=== PATIENT | female | born 1955 | race Caucasian/White ===

== ENCOUNTER 2017-02-11 20:37 | Observation (INO) | payer OTHER ==
[~2017-02-11] VITALS: Ht 160 cm; Wt 75.0 kg
[~2017-02-11 20:37] MED LIST: ASPI81CH CHEW; ATOR40TA16 PO; GABA800T PO; LEVO50TA4 PO; MAPA500T13 PO; MECL-62 PO; METO200T3 PO
[2017-02-11 20:52] VITALS: BP 150/67; PULSE 74; RESP 18; TEMP 98.7; O2SAT 99
[2017-02-11] MEDS ORDERED: NITROGLYCERIN 0.4 MG SL 25 TABS/BTL SL ONE (21:00)
[2017-02-11] MEDS ORDERED: SODIUM CHLORIDE 0.9% FLUSH 10 ML FLUSH IVF PRN (21:00)
[2017-02-11 21:09] VITALS: BP 112/73; PULSE 74; RESP 18; O2SAT 99
--- NOTE | 2017-02-11 21:10 | PD ---
HPI Chief Complaint: Chest Pain Time Seen by Provider: 21:06 Travel History International Travel<30 days: No Contact w/Intl Traveler<30days: No Traveled to known affect area: No History of Present Illness HPI 61-year-old female that presents to the ED for evaluation of chest pain. Patient states that she's had the chest pain for about a couple hours. Per patient she does have a history of heart disease in 2004 and received stents for this. She has no local cytology manager that she is originally from [place]. Per patient she just made an appointment with a local doctor and has only had one visit with his doctor. Patient has a history of high cholesterol and hypertension. Per patient the chest pain comes and shortness of breath and feels like a pressure as well as a palpitation. Per patient he does not radiate. States mainly on the left side. Patient also has some epigastric abdominal pain with some nausea. Per patient she also has a slight headache. She also states that she feels dizzy. Per patient the pain in the chest is 9 out of 10. She denies taking any blood thinners. She states that she has not vomited. She did took 4 small aspirin before coming to the ED. She has no allergies to medication. She is Czech speaker only and was offered snuff box finisher but she declined stating that she feels comfortable with my Czech as well as with her translating for her. [facility] Past Medical History Cardiovascular Problems: Yes (cardiac stents 2004) High Cholesterol: Yes Hypertension: Yes Thyroid Disease: Yes Past Surgical History Cardiac Surgery: Yes (stents) Coronary Stent: Yes Social History Alcohol Use: No Tobacco Use: Yes Substance Use: No Allergies-Medications (Allergen,Severity, Reaction): Coded Allergies: No Known Allergies (Unverified , 01/03/17) Reported Meds & Prescriptions Reported Meds & Active Scripts Active Reported Mapap Extra Strength (Acetaminophen) 500 Mg Tab 500 Mg PO Q4-6H PRN Aspirin 81 Mg Chew 81 Mg CHEW DAILY Atorvastatin (Atorvastatin Calcium) 40 Mg Tab 40 Mg PO HS Levothyroxine (Levothyroxine Sodium) 50 Mcg Tab 50 Mcg PO DAILY Gabapentin 800 Mg Tab 800 Mg PO TID Meclizine (Meclizine HCl) 25 Mg Tab 25 Mg PO DIRECTED PRN Metoprolol Succinate ER 24 HR (Metoprolol Succinate) 200 Mg Tab 200 Mg PO DAILY Review of Systems Except as stated in HPI: all other systems reviewed are Neg Physical Exam Narrative GENERAL: SKIN: Warm and dry. HEAD: Atraumatic. Normocephalic. EYES: Pupils equal and round. No scleral icterus. No injection or drainage. ENT: No nasal bleeding or discharge. Mucous membranes pink and moist. Tongue is midline. No uvula deviation. NECK: Trachea midline. No JVD. CARDIOVASCULAR: Regular rate and rhythm. No murmurs, S3, S4. RESPIRATORY: No accessory muscle use. Clear to auscultation. Breath sounds equal bilaterally. GASTROINTESTINAL: Abdomen soft, tender to palpation epigastric area, nondistended. Hepatic and splenic margins not palpable. MUSCULOSKELETAL: Extremities without clubbing, cyanosis, or edema. No obvious deformities. Full range of motion of the upper and lower extremities bilaterally. 2+ pulses bilaterally. NEUROLOGICAL: Awake and alert. No obvious cranial nerve deficits. Motor grossly within normal limits. Five out of 5 muscle strength in the arms and legs. Normal speech. PSYCHIATRIC: Appropriate mood and affect; insight and judgment normal. Data Data Last Documented VS Vital Signs Date Time Temp Pulse Resp B/P Pulse Ox O2 Delivery O2 Flow Rate FiO2 02/11/17 21:09 74 18 112/73 99 Room Air 02/11/17 20:52 98.7 Orders Electrocardiogram (02/11/17 20:48) Ckmb (Isoenzyme) Profile (02/11/17 20:48) Complete Blood Count With Diff (02/11/17 20:48) Comprehensive Metabolic Panel (02/11/17 20:48) Magnesium (Mg) (02/11/17 20:48) Prothrombin Time / Inr (Pt) (02/11/17 20:48) Act Partial Throm Time (Ptt) (02/11/17 20:48) Troponin I (02/11/17 20:48) Lipase (02/11/17 20:48) Chest, Single Ap (02/11/17 20:48) Ecg Monitoring (02/11/17 20:48) Bilateral Bp Monitoring (02/11/17 20:48) Iv Access Insert/Monitor (02/11/17 20:48) Oximetry (02/11/17 20:48) Oxygen Administration (02/11/17 20:48) Sodium Chloride 0.9% Flush (Ns Flush) (02/11/17 21:00) Nitroglycerin Sl (Nitrostat Sl) (02/11/17 21:00) Morphine Inj (Morphine Inj) (02/11/17 21:45) CKMB (02/11/17 21:00) CKMB% (02/11/17 21:00) Famotidine Inj (Pepcid Inj) (02/11/17 22:30) Admit Order (Ed Use Only) (02/11/17:31) Activity Bed Rest With Brp (02/11/17:) Vital Signs (Adult) Q4H (02/11/17) Cardiac Rhythm .As Directed (02/11/17:) Notify Dr: Other .PRN (02/11/17) Notify DrSonu Parameters (02/11/17) Resp Oxygen Nasal Cannula (02/11/17 ) Ckmb (Isoenzyme) Profile (02/12/17 00:00) Ckmb (Isoenzyme) Profile (02/12/17 03:00) Troponin I (02/12/17 00:00) Troponin I (02/12/17 03:00) Electrocardiogram (02/12/17 00:00) Electrocardiogram (02/12/17 03:00) ^ Obtain (02/11/17:31) Sodium Chloride 0.9% Flush (Ns Flush) (02/11/17 22:45) Sodium Chloride 0.9% Flush (Ns Flush) (02/12/17 09:00) Acetaminophen (Tylenol) (02/11/17 22:45) Acetamin-Hydrocod 325-7.5 Mg (Roark 7.5 (02/11/17 22:45) Famotidine (Pepcid) (02/12/17 09:00) Nitroglycerin 2% Oint (Nitroglycerin 2% (02/12/17 00:00) Water Quality Assistant / Telemetry SETH.Q8H (02/11/17:) Labs Laboratory Tests Test 02/11/17 21:00 White Blood Count 8.0 TH/MM3 Red Blood Count 4.41 MIL/MM3 Hemoglobin 13.1 GM/DL Hematocrit 40.4 % Mean Corpuscular Volume 91.6 FL Mean Corpuscular Hemoglobin 29.8 PG Mean Corpuscular Hemoglobin 32.5 % Concent Red Cell Distribution Width 14.7 % Platelet Count 256 TH/MM3 Mean Platelet Volume 9.0 FL Neutrophils (%) (Auto) 55.1 % Lymphocytes (%) (Auto) 33.1 % Monocytes (%) (Auto) 7.7 % Eosinophils (%) (Auto) 3.5 % Basophils (%) (Auto) 0.6 % Neutrophils # (Auto) 4.4 TH/MM3 Lymphocytes # (Auto) 2.6 TH/MM3 Monocytes # (Auto) 0.6 TH/MM3 Eosinophils # (Auto) 0.3 TH/MM3 Basophils # (Auto) 0.0 TH/MM3 CBC Comment DIFF FINAL Differential Comment Prothrombin Time 10.9 SEC Prothromb Time International 1.0 RATIO Ratio Activated Partial 30.0 SEC Thromboplast Time Sodium Level 139 MEQ/L Potassium Level 4.2 MEQ/L Chloride Level 106 MEQ/L Carbon Dioxide Level 29.7 MEQ/L Anion Gap 3 MEQ/L Blood Urea Nitrogen 13 MG/DL Creatinine 0.82 MG/DL Estimat Glomerular Filtration 70 ML/MIN Rate Random Glucose 89 MG/DL Calcium Level 9.5 MG/DL Magnesium Level 2.1 MG/DL Total Bilirubin 0.5 MG/DL Aspartate Amino Transf 37 U/L (AST/SGOT) Alanine Aminotransferase 29 U/L (ALT/SGPT) Alkaline Phosphatase 71 U/L Total Creatine Kinase 152 U/L Troponin I LESS THAN 0.02 NG/ML Total Protein 8.1 GM/DL Albumin 4.0 GM/DL Lipase 353 U/L MDM Medical Decision Making Medical Screen Exam Complete: Yes Emergency Medical Condition: Yes Medical Record Reviewed: Yes Interpretation(s) CBC & BMP Diagram 02/11/17 21:00 LFTs and lipase within normal limits. EKG shows sinus rhythm with no sign of acute ischemia or arrhythmia. Read by me and attending. Last Impressions Chest X-Ray 02/11/172047 Signed Impressions: Service Date/Time: Saturday, February 11, 2017 21:04 - CONCLUSION: No acute disease. Lamberto Feliciano MD Troponin and CK-MB negative. Differential Diagnosis Chest pain versus a typical chest pain versus ACS versus pneumothorax versus pneumonia versus CVA versus N-STEMI Narrative Course 61-year-old female that presents to the ED for evaluation of chest pain. Patient was properly examined and was found to have signs and symptoms concerning for ACS. Labs and imaging were ordered. Initial EKG shows sinus rhythm with no sign of acute ischemia read by me and attending. Labs and imaging were ordered. Patient was given nitroglycerin here. Labs and imaging showed no sign of acute disease. Patient was reassured. At this time case was discussed with my attending Dr. Jackson who is in agreement with admission to the chest pain center for further workup secondary to her comorbidities including previous ACS on herself. She also has a history of high blood pressure and high cholesterol. She got some relief with the nitroglycerin. She was given morphine for her pain as well. She was given Pepcid as she was complaining of some heartburn as well. Patient and family agree with plan to admission. Patient was admitted to the chest pain center. Orders were placed by me. Diagnosis Primary Impression: Chest pain in adult Admitting Information Admitting Physician Requests: Michael Madera Feb 11, 2017 21:10
[2017-02-11 21:35] LABS: AUTOMATED NEUTROPHIL # 4.4 TH/MM3 (1.8-7.7); BASOPHIL % 0.6 % (0.0-2.0); EOSINOPHIL # 0.3 TH/MM3 (0-0.4); EOSINOPHIL % 3.5 % (0.0-4.0); HEMATOCRIT 40.4 % (35.0-46.0); HEMO FLAGS DIFF FINAL; LYMPH % 33.1 % (9.0-44.0); LYMPHOCYTE # 2.6 TH/MM3 (1.0-4.8); MEAN CELL VOLUME 91.6 FL (80.0-100.0); MEAN CORPUSCULAR HEMOGLOBIN 29.8 PG (27.0-34.0); MEAN CORPUSCULAR HGB CONC 32.5 % (32.0-36.0); MONO % 7.7 % (0.0-8.0); NEUT % 55.1 % (16.0-70.0); PLATELET COUNT 256 TH/MM3 (150-450); RED BLOOD COUNT 4.41 MIL/MM3 (4.00-5.30); RED CELL DISTRIBUTION WIDTH 14.7 % (11.6-17.2)
--- NOTE | 2017-02-11 21:40 | RADRPT ---
EXAM DATE/TIME: 02/11/2017 21:04 [facility] COMPARISON: No previous studies available for comparison. INDICATIONS : Chest pain. MEDICAL HISTORY : Hypertension. Hypercholesterolemia. Smoker. SURGICAL HISTORY : Coronary stent. ENCOUNTER: Initial ACUITY: 1 day PAIN SCORE: 5/10 LOCATION: Bilateral chest FINDINGS: A single view of the chest demonstrates the lungs to be symmetrically aerated without evidence of mas s, infiltrate or effusion. The cardiomediastinal contours are unremarkable. Osseous structures are intact. CONCLUSION: No acute disease. Lamberto Feliciano MD on February 11, 2017 at 21:39 Board Certified Radiologist. This report was verified electronically.
[2017-02-11] MEDS ORDERED: MORPHINE SULFATE 8 MG/ML INJ IV PUSH ONE (21:45)
[2017-02-11 21:47] LABS: PROTHROMBIN TIME - PATIENT 10.9 SEC (9.8-11.6)
[2017-02-11 22:12] LABS: ALT (GPT) 29 U/L (10-53)
[2017-02-11 22:26] LABS: ALKALINE PHOSPHATASE 71 U/L (45-117); ANION GAP 3 MEQ/L (5-15); AST (GOT) 37 U/L (15-37); BICARBONATE 29.7 MEQ/L (21.0-32.0); BLOOD UREA NITROGEN 13 MG/DL (7-18); CHLORIDE 106 MEQ/L (98-107); CREATINE KINASE 152 U/L (26-192); GLOMERULAR FILTRATION RATE 70 ML/MIN (>89); MAGNESIUM 2.1 MG/DL (1.5-2.5); POTASSIUM 4.2 MEQ/L (3.5-5.1); SODIUM (NA) 139 MEQ/L (136-145); TOTAL BILIRUBIN ADULT 0.5 MG/DL (0.2-1.0)
[2017-02-11] MEDS ORDERED: FAMOTIDINE 20 MG/2 ML VIAL IV PUSH ONE (22:30)
[2017-02-11 22:39] LABS: CKMB 0.7 NG/ML (0.5-3.6)
[2017-02-11 22:43] VITALS: O2SAT 99
[2017-02-11] MEDS ORDERED: SODIUM CHLORIDE 0.9% FLUSH 10 ML FLUSH IV FLUSH PRN (22:45)
[2017-02-11] MEDS ORDERED: ACETAMINOPHEN/HYDROcodone 325 MG/7.5 MG TAB PO PRN (22:45)
[2017-02-11] MEDS ORDERED: ACETAMINOPHEN 500 MG CPLT PO PRN (22:45)
[2017-02-11 22:51] VITALS: BP 126/58; PULSE 67; RESP 18; O2SAT 98
[2017-02-11] MEDS ORDERED: ACETAMINOPHEN 325 MG TAB PO ONE (23:00)
[2017-02-11 23:35] VITALS: BP 127/62; PULSE 63; RESP 19; TEMP 97.4; O2SAT 99
[2017-02-12] MEDS: NITROGLYCERIN 2% OINT 1 GM PACKET TOP SCH ×2 (00:47→06:00)
[2017-02-12 00:49] LABS: CREATINE KINASE 120 U/L (26-192)
[2017-02-12 04:14] VITALS: BP 97/55; PULSE 63; RESP 18; TEMP 97.5; O2SAT 99
[2017-02-12 04:15] LABS: CREATINE KINASE 92 U/L (26-192)
[2017-02-12 04:52] VITALS: PULSE 60
[2017-02-12 07:42] VITALS: BP 104/56; PULSE 60; RESP 20; TEMP 97; O2SAT 98
[2017-02-12] MEDS ORDERED: MECLIZINE HCL 25 MG TAB PO PRN (07:45)
[2017-02-12 08:00] VITALS: PULSE 68
--- NOTE | 2017-02-12 08:00 | HHI.HP ---
HPI Primary Care Physician Unknown Chief Complaint Chest pain History of Present Illness This is a 61-year-old Cambodian-speaking female with history of CAD with 2 stents in 2004 that presents to ED with her via private vehicle to evaluate a chest discomfort. Patient prefers her via enterprise records analyst. Computer translation was offered but she has to climb. She describes a central chest pressure and epigastric discomfort that began around 2:00 yesterday while sitting at home. It lasted for several hours resolving in the ED after getting IV morphine. Symptoms lasted at least 8 hours. She is mildly short of breath. She was nauseous. No diaphoresis. Found nothing to worsen or improve her symptoms when she had them. She decided to lie down which did not help or worsen the symptoms. Eventually she told her of her symptoms and he brought her to the ED. These are not similar to the symptoms that she had when she had stents in 2004. Her main issue at that time was extreme shortness of breath and fatigue. They brought records and apparently she had a abnormal nuclear ETT and was was having a heart catheterization 12/22/16. states she coded. Upon reviewing records, patient went into PEA with intermittent V. fib requiring intubation and IABP. Patient was found to have total occlusion of ostial LAD, LCXP 90%, ORALIA 90%. Then drug-eluting stents 2 in the LAD and 1 to the mid circumflex were then placed. A repeat cardiac catheterization was performed 4 days later revealing patent stents. This smaller section proximal to the initial stent of the left circumflex and a second stent was then placed. Patient has moved to [place]. She does not have a drug abuse worker in the area. Last evaluation by drug abuse worker was about a year ago in [place]. Last stress test was 3 years ago. She has not had any cardiac catheterizations since 2004. Review of Systems General: Patient denies fevers, chills recent, and recent travel. Patient is Cambodian only speaking. Her is translating at the request of the patient. HEENT: Patient denies headache, sore throat, difficulty swallowing. Cardiovascular: Has the chest discomfort as mentioned above. [place] as if her heart was beating rapidly. No syncope. Denies diaphoresis. Respiratory: She had mild shortness of breath. Denies inspirational chest discomfort. Denies coughing wheezing or hemoptysis. GI: She had some nausea. Had epigastric abdominal pain during the episode chest discomfort. Patient denies vomiting, diarrhea, or bloody stools. Musculoskeletal: Patient denies joint pain or edema. Denies calf pain or edema. Neurovascular: Patient denies numbness, tingling, weakness in extremities. Denies headache. Endocrine: Denies polyuria and polydipsia. Hematologic: Denies easy bruising. Skin: Denies rash or itching. Past Family Social History Allergies: Coded Allergies: No Known Allergies (Unverified , 01/03/17) Past Medical History CAD with stents 2 in 2004. History of PEA with intermittent V. fib during cardiac catheterization in 2004. Hypertension, hyperlipidemia, hypothyroidism, and smoking. Denies diabetes. Past Surgical History Cardiac catheterization with stenting. Appendectomy and cholecystectomy. Reported Medications Reported Meds & Active Scripts Active Reported Mapap Extra Strength (Acetaminophen) 500 Mg Tab 500 Mg PO Q4-6H PRN Aspirin 81 Mg Chew 81 Mg CHEW DAILY Atorvastatin (Atorvastatin Calcium) 40 Mg Tab 40 Mg PO HS Levothyroxine (Levothyroxine Sodium) 50 Mcg Tab 50 Mcg PO DAILY Gabapentin 800 Mg Tab 800 Mg PO TID Meclizine (Meclizine HCl) 25 Mg Tab 25 Mg PO DIRECTED PRN Metoprolol Succinate ER 24 HR (Metoprolol Succinate) 200 Mg Tab 200 Mg PO DAILY Active Ordered Medications Current Medications Medications (Trade) Dose Ordered Sig/Ronal Route Start Time Stop Time Status Last Admin (NS Flush) 2 ml UNSCH PRN IVF 02/11/17 21:00 (NS Flush) 2 ml UNSCH PRN IV FLUSH 02/11/17 22:45 (NS Flush) 2 ml BID IV FLUSH 02/12/17 09:00 (Tylenol) 500 mg Q4H PRN PO 02/11/17 22:45 (Mclean 7.5-325 Mg) 1 tab Q4H PRN PO 02/11/17 22:45 (Pepcid) 20 mg BID PO 02/12/17 09:00 (Nitroglycerin 2% Oint) 1 inch Q6HR TOP 02/12/17 00:00 02/12/17 00:47 Family History Both parents had heart disease. Social History She continues to smoke. She has been smoking about one quarter pack to one half pack a day for more than 30 years. She had quit for a few years at most. Denies alcohol or illicit drugs. She has been for the last 6 months. Physical Exam Vital Signs Vital Signs Date Time Temp Pulse Resp B/P Pulse Ox O2 Delivery O2 Flow Rate FiO2 02/12/17 04:52 60 02/12/17 04:14 97.5 63 18 97/55 99 02/11/17 23:35 63 02/11/17 23:35 97.4 63 19 127/62 99 02/11/17 22:51 67 18 126/58 98 Room Air 02/11/17 22:43 99 02/11/17 21:09 74 18 112/73 99 Room Air 02/11/17 20:52 98.7 74 18 150/67 99 Room Air Physical Exam GENERAL: This is a well-nourished, well-developed patient, in no apparent distress. Patient speaks in clear complete sentences. Patient is pleasant. HEENT: Head is atraumatic and normocephalic. Neck is supple without lymphadenopathy and trachea is midline. No JVD or carotid bruits. CARDIOVASCULAR: Regular rate and rhythm without murmurs, gallops, or rubs. RESPIRATORY: Clear to auscultation. Breath sounds equal bilaterally. No wheezes , rales, or rhonchi. Chest wall is nontender. No use of accessory muscles. GASTROINTESTINAL: Abdomen is nontender, nondistended. Abdomen soft. No obvious pulsatile mass or bruit. No CVA tenderness. Strong femoral pulses bilaterally. Normal bowel sounds in all quadrants. MUSCULOSKELETAL: Patient is moving upper and lower extremities freely. No calf tenderness or edema, no Homans sign. Strong pulses in upper and lower extremities. NEUROLOGICAL: Patient is alert and oriented. Cranial nerves 2-12 are grossly intact. No focal deficits and speech is clear. SKIN: No rash and turgor is normal. Laboratory Laboratory Tests Test 02/11/17 02/12/17 02/12/17 21:00 00:02 03:19 White Blood Count 8.0 Red Blood Count 4.41 Hemoglobin 13.1 Hematocrit 40.4 Mean Corpuscular Volume 91.6 Mean Corpuscular Hemoglobin 29.8 Mean Corpuscular Hemoglobin 32.5 Concent Red Cell Distribution Width 14.7 Platelet Count 256 Mean Platelet Volume 9.0 Neutrophils (%) (Auto) 55.1 Lymphocytes (%) (Auto) 33.1 Monocytes (%) (Auto) 7.7 Eosinophils (%) (Auto) 3.5 Basophils (%) (Auto) 0.6 Neutrophils # (Auto) 4.4 Lymphocytes # (Auto) 2.6 Monocytes # (Auto) 0.6 Eosinophils # (Auto) 0.3 Basophils # (Auto) 0.0 CBC Comment DIFF FINAL Differential Comment Prothrombin Time 10.9 Prothromb Time International 1.0 Ratio Activated Partial 30.0 Thromboplast Time Sodium Level 139 Potassium Level 4.2 Chloride Level 106 Carbon Dioxide Level 29.7 Anion Gap 3 Blood Urea Nitrogen 13 Creatinine 0.82 Estimat Glomerular Filtration 70 Rate Random Glucose 89 Calcium Level 9.5 Magnesium Level 2.1 Total Bilirubin 0.5 Aspartate Amino Transf 37 (AST/SGOT) Alanine Aminotransferase 29 (ALT/SGPT) Alkaline Phosphatase 71 Total Creatine Kinase 152 120 92 Creatine Kinase MB 0.7 1.0 Troponin I LESS THAN 0.02 LESS THAN 0.02 LESS THAN 0.02 Total Protein 8.1 Albumin 4.0 Lipase 353 Result Diagram: 02/11/17 2100 02/11/172099 Imaging Last 24 hours Impressions Chest X-Ray 02/11/172047 Signed Impressions: Service Date/Time: Saturday, February 11, 2017 21:04 - CONCLUSION: No acute disease. Lamberto Feliciano MD Course EKGs have sinus rhythm with nonspecific T-wave changes. Assessment and Plan Assessment and Plan * Chest pain: Patient has had serial cardiac enzymes and EKGs for ruling out purposes. She will be seen by Dr. Camp of cardiology in the chest pain center and will undergo a Lexiscan. She'll be discharged home if the stress test was nonischemic with instructions to follow-up with local primary care physician as well as a local drug abuse worker. * CAD: This will be reassessed for stress testing. She will need to quit smoking. She will need to continue her medications. She will need to follow local drug abuse worker on an outpatient basis. * Hypertension: Continue current medication. * Hyperlipidemia: Continue current medication. * Hypothyroidism: Continue current medication. * Tobacco abuse: Patient has been counseled on importance of smoking cessation. Patient is stable at this time. She is agreeable to this plan. Duane Uribe Feb 12, 2017 08:00
[2017-02-12] MEDS ORDERED: FAMOTIDINE 20 MG TAB PO SCH (09:00)
[2017-02-12] MEDS ORDERED: LEVOTHYROXINE SODIUM 50 MCG TAB PO SCH (09:00)
[2017-02-12] MEDS ORDERED: GABAPENTIN 400 MG CAP PO SCH (09:00)
[2017-02-12] MEDS ORDERED: ASPIRIN 325 MG TAB PO SCH (09:00)
[2017-02-12] MEDS ORDERED: METOPROLOL SUCCINATE 50 MG EXTENDED RELEASE TAB PO SCH (09:00)
[2017-02-12] MEDS ORDERED: SODIUM CHLORIDE 0.9% FLUSH 10 ML FLUSH IV FLUSH SCH (09:00)
[2017-02-12] MEDS ORDERED: PANTOPRAZOLE SOD 40 MG DELAYED RELEASE TAB PO SCH (09:00)
[2017-02-12] MEDS ORDERED: REGADENOSON INJ 0.4 MG/5 ML SYR ONE (09:21)
--- NOTE | 2017-02-12 10:33 | RADRPT ---
EXAM DATE/TIME: 02/12/2017 08:35 [facility] COMPARISON: No previous studies available for comparison. INDICATIONS : Susbsternal chest pain with nausea. Angina. DOSE: 27.1 mCi Tc99m Myoview at stress. 8.5 mCi Tc99m Myoview at rest. 0.4 mg Lexiscan STRESS SYMPTOMS: Dyspnea and stomach pain EJECTION FRACTION: 66% MEDICAL HISTORY : Hypertension. SURGICAL HISTORY : Coronary artery stent. Appendectomy. Cholecystectomy. ENCOUNTER: Initial ACUITY: 1 day PAIN SCALE: 5/10 LOCATION: Substernal chest TECHNIQUE: The patient underwent pharmacologic stress with infusion of prescribed dose. Continuous ECG tracing was monitored during stress. Gated SPECT imaging was performed after stress and conventional SPECT i maging was performed at rest. The examination was performed on a SPECT/CT scanner, both attenuation and non-corrected datasets were reviewed. FINDINGS: DISTRIBUTION: The maximum perfused segment at stress is in the inferior wall. PERFUSION STUDY: The pattern of perfusion at stress is within normal limits. GATED STUDY: There is intact wall motion and thickening without hypokinetic or dyskinetic segments. CONCLUSION: 1. No significant reversible perfusion abnormality. 2. No focal wall motion abnormality with EF of 66%. RISK CATEGORY: Low (<1% Annual Mortality Rate) Albert Garcia MD on February 12, 2017 at 10:30 Board Certified Radiologist. This report was verified electronically.
[2017-02-12] MEDS ORDERED: PANT40TA3 PO (10:50)
--- NOTE | 2017-02-12 10:51 | HHI.DCPOC ---
Discharge Care Plan Diagnosis: (1) Chest pain (2) CAD (coronary artery disease) (3) H/O heart artery stent (4) Hypertension (5) Hyperlipidemia (6) Tobacco abuse Goals to Promote Your Health * To prevent worsening of your condition and complications * To maintain your health at the optimal level Directions to Meet Your Goals Take your medications as prescribed Follow your dietary instruction Follow activity as directed Keep your appointments as scheduled Take your immunizations and boosters as scheduled If your symptoms worsen call your PCP, if no PCP go to Urgent Care Center or Emergency Room Smoking is Dangerous to Your Health. Avoid second hand smoke Call the 24-hour hour crisis hotline for domestic abuse at Duane Uribe Feb 12, 2017 10:51
--- NOTE | 2017-02-12 16:58 | TR ---
Date Performed: 02/12/2017 Time Performed: 09:21:04 DOCTOR: Connie Camp DRUG LIST: CLINICAL HISTORY: REASON FOR TEST: Angina REASON FOR ENDING: OBSERVATION: CONCLUSION: Lexiscan stress test was performed under standard four minute protocol. Radionuclid e was injected one minute prior to ending the test. No electrocardiographic abormalities were present to suggest ischemia. Nuclear imaging and interpretation are pending. COMMENTS:
--- NOTE | 2017-02-12 16:59 | EKG ---
Date Performed: 02/12/2017 Time Performed: 03:55:43 PTAGE: 61 years EKG: Sinus rhythm NONSPECIFIC T-WAVE ABNORMALITY BORDERLINE ECG Since PREVIOUS TRACING , no significant change noted PREVIOUS TRACIN02/12/2017 01.43 DOCTOR: Connie Camp Interpretating Date/Time 02/12/2017 16:58:13
--- NOTE | 2017-02-12 16:59 | EKG ---
Date Performed: 02/11/2017 Time Performed: 20:49:28 PTAGE: 61 years EKG: Sinus rhythm NORMAL ECG NO PREVIOUS TRACING DOCTOR: Connie Camp Interpretating Date/Time 02/12/2017 16:58:38
--- NOTE | 2017-02-12 16:59 | EKG ---
Date Performed: 02/12/2017 Time Performed: 01:43:41 PTAGE: 61 years EKG: Sinus rhythm WITH FIRST DEGREE AV BLOCK NONSPECIFIC T-WAVE ABNORMALITY ABNORMAL ECG Since PREVIOUS TRACING , no significant change noted PREVIOUS TRACIN02/11/2017 20.49 DOCTOR: Connie Camp Interpretating Date/Time 02/12/2017 16:58:32
[2017-02-12] MEDS ORDERED: ATORVASTATIN 40 MG TAB PO SCH (21:00)
== END 2017-02-12 11:41 | disposition home or self-care (01) ==
LOC: NEPC 20:37 → NEDA 22:35 → NEPFCDU 23:24
PROVIDERS: ADMIT Internal Medicine Interventional Cardiology; ATTEND Internal Medicine Interventional Cardiology
DX: R07.9 Chest pain, unspecified (principal); I25.10 Atherosclerotic heart disease of native coronary artery without angina pectoris; Z98.61 Coronary angioplasty status; I10 Essential (primary) hypertension; E03.9 Hypothyroidism, unspecified; E78.5 Hyperlipidemia, unspecified; F17.200 Nicotine dependence, unspecified, uncomplicated; Z71.6 Tobacco abuse counseling; R06.02 Shortness of breath; I44.0 Atrioventricular block, first degree; Z79.899 Other long term (current) drug therapy
CPT/HCPCS: 71010; 78452; 80053; 82550; 82552; 83690; 83735; 84484; 85025; 85610; 85730; 93005; 93017; 99285; A9502; G0378; J2785